=== PATIENT | male | born 1985 | race Caucasian/White ===

== ENCOUNTER 2020-09-28 01:45 | Emergency (ER) | payer MEDICAID ==
[~2020-09-28] VITALS: Ht 165.1 cm; Wt 68.5 kg
[2020-09-28] MEDS ORDERED: ACETAMINOPHEN 325MG TABLET PO ONE (02:30)
[2020-09-28] MEDS ORDERED: IBUPROFEN 800MG TABLET PO ONE (02:30)
[2020-09-28 05:55] VITALS: BP 105/56
== END 2020-09-28 05:56 | disposition home or self-care (01) ==
LOC: ER 01:45
DX: U07.1 COVID-19 (principal); J02.9 Acute pharyngitis, unspecified; R50.9 Fever, unspecified
CPT/HCPCS: 87070; 87430; 87635; 99283

== ENCOUNTER 2021-06-23 05:35 | Emergency (ER) | payer MEDICAID, OTHER ==
[~2021-06-23] VITALS: Ht 160 cm; Wt 70.0 kg
[2021-06-23 06:24] LABS: BASOPHILS % 0.4 % (0.0-2.0); EOSINOPHILS % 0.4 % (0.0-5.0); HEMATOCRIT. 41.7 % (42.0-52.0); HEMOGLOBIN. 14.2 g/dL (14.0-18.0); LYMPHOCYTES % 25.1 % (20.0-50.0); MEAN CORPUSCULAR HEMOGLOBIN 30.1 pg (28.0-32.0); MEAN CORPUSCULAR VOLUME 88.5 fL (80.0-94.0); MEAN PLATELET VOLUME 8.1 fl (7.4-10.4); MONOCYTES % 7.4 % (2.0-8.0); NEUTROPHILS % 66.7 % (40.0-76.0); PLATELET 273 x1000/uL (130-400); RED BLOOD CELL COUNT 4.71 mill/uL (4.7-6.1); RED CELL DISTRIBUTION WIDTH 13.4 % (11.6-14.6)
[2021-06-23 06:30] LABS: CHLORIDE 109 mEq/L (98-107)
[2021-06-23 06:33] LABS: PROTHROMBIN TIME 10.7 sec (9.6-11.0)
[2021-06-23 06:34] LABS: ETHANOL BLOOD < 10 mg/dL
[2021-06-23] MEDS ORDERED: MORPHINE SULFATE 4 MG/ML CPJ (NOT FOR IM USE) IV STA (06:55)
[2021-06-23] MEDS ORDERED: ONDANSETRON HCL 4MG/2ML INJ IV STA (06:55)
[2021-06-23] MEDS ORDERED: SODIUM CHLORIDE 0.9% 1,000 ML IV ONE (07:00)
[2021-06-23] MEDS ORDERED: ONDA4TAB5 MT (09:03)
[2021-06-23 09:28] VITALS: BP 101/72
== END 2021-06-23 09:31 | disposition home or self-care (01) ==
LOC: ER 05:35
DX: R10.11 Right upper quadrant pain (principal); K80.20 Calculus of gallbladder without cholecystitis without obstruction; I51.9 Heart disease, unspecified; Z95.1 Presence of aortocoronary bypass graft
CPT/HCPCS: 36415; 76700; 80053; 80320; 83605; 83690; 85025; 85610; 96361; 96374; 96375; 99284; J2270; J2405; J7030; G0480